=== PATIENT | male | born 1975 | race Caucasian/White ===

== ENCOUNTER 2024-01-07 02:23 | Emergency (ER) | payer OTHER ==
[~2024-01-07] VITALS: Ht 177.8 cm; Wt 95.2 kg
--- OUTSIDE RECORDS SUMMARY | 2024-01-07 02:26 | XMS ---
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 Davina has no Care Guidelines for this patient. [place] VISIT COUNT (12 MO.) 1 [facility] TOTAL 1 NOTE: Visits indicate total known visits. ED/UCC VISIT TRACKING (12 MO.) 01/07/2024 02:23 [facility] [place] TYPE: Emergency COMPLAINT: - HAND PAIN/SWELLING INPATIENT VISIT TRACKING (12 MO.) No inpatient visits to display in this time frame [email or web address]
[2024-01-07] MEDS ORDERED: LEVOTHYROXINE125 MC1 (02:44)
[2024-01-07] MEDS ORDERED: BUPRENORPHINE HC8 MG SL (02:45)
[2024-01-07] MEDS ORDERED: DEXAMETHASONE SOD PHOS 10 MG/ML VIAL IV ONE (02:45)
[2024-01-07] MEDS ORDERED: diphenhydrAMINE HCL 50 MG/ML VIAL IV ONE (02:45)
[2024-01-07] MEDS ORDERED: ARMODAFINIL250 MG (02:45)
[2024-01-07 02:50] LABS: BASOPHILS 0.4 % (0-2); EOSINOPHILS 2.4 % (0-6); HEMATOCRIT 45.4 % (35.0-50.0); HEMOGLOBIN 15.1 g/dL (12.0-18.0); LYMPHOCYTES 38.1 % (24-44); MCH 29.2 (27-36); MCHC 33.2 g/dl (30-36); MCV 87.9 fl (81-99); MONOCYTES 6.6 % (0-12); NEUTROPHILS 52.5 % (39-80); PLATELET COUNT 284 K/uL (140-440); RBC 5.16 M/ul (4.3-5.7)
[2024-01-07 03:06] LABS: ALBUMIN 3.8 g/dL (3.4-5.0); ALBUMIN/GLOBULIN RATIO 0.97 (1.1-2.4); ANION GAP 9.7 (7-21); BILIRUBIN, TOTAL 0.2 ng/dL (0.2-1.0); CALCIUM 8.9 mg/dL (8.5-10.1); POTASSIUM 3.7 mmol/L (3.5-5.1); PROTEIN, TOTAL 7.7 g/dL (6.4-8.2)
[2024-01-07 04:00] VITALS: BP 154/83
[2024-01-07 04:30] LABS: AMPHETAMINES, URINE POSITIVE (NEGATIVE); BARBITURATES, URINE NEGATIVE (NEGATIVE); BENZODIAZEPINE, URINE NEGATIVE (NEGATIVE); BUPRENORPHINE, URINE POSITIVE (NEGATIVE); CANNABINOID, URINE NEGATIVE (NEGATIVE); COCAINE, URINE POSITIVE (NEGATIVE); ECSTASY, URINE NEGATIVE (NEGATIVE); FENTANYL, URINE NEGATIVE (NEGATIVE); METHADONE, URINE NEGATIVE (NEGATIVE); OPIATES, URINE NEGATIVE (NEGATIVE); OXYCODONE, URINE NEGATIVE (NEGATIVE); PHENCYCLIDINE, URINE NEGATIVE (NEGATIVE)
== END 2024-01-07 04:00 | disposition home or self-care (01) ==
LOC: ED 02:23
PROVIDERS: Family Medicine
DX: F14.10 Cocaine abuse, uncomplicated (principal); F17.200 Nicotine dependence, unspecified, uncomplicated; Z88.0 Allergy status to penicillin; Z79.899 Other long term (current) drug therapy
CPT/HCPCS: 36415; 80053; 80307; 85025; 96374; 96375; 99284-25; J1100; J1200